=== PATIENT | female | born 1995 | race Caucasian/White ===

== ENCOUNTER 2018-07-07 10:44 | Emergency (ER) | payer BC ==
[~2018-07-07] VITALS: Ht 154.9 cm; Wt 59.9 kg
[~2018-07-07 10:44] MED LIST: BIRTH CONTROL TABS; HYDROCODONE-AP1 EAC6 PO; IBUPROFEN 600600 M1 PO; NOHOMEMEDICATIONS; PROMETHAZINE12.5 M1 PO; ZOFRAN 4 MG ORAL4 MG PO; ZPAK PO
[2018-07-07 11:09] LABS: URINE BILIRUBIN NEGATIVE (Negative); URINE BLOOD NEGATIVE (Negative); URINE CLARITY CLEAR; URINE COLOR YELLOW; URINE GLUCOSE-RANDOM NEGATIVE (Negative); URINE KETONES NEGATIVE (Negative); URINE LEUKOCYTES-REFLEX NEGATIVE (Negative); URINE NITRITE-REFLEX NEGATIVE (Negative); URINE PROTEIN NEGATIVE (Negative); URINE SPECIFIC GRAVITY 1.025 (1.005-1.030); URINE UROBILINOGEN 0.2 E.U./dl (0.2-1.0)
[2018-07-07 11:24] LABS: HEMATOCRIT 45.3 % (37.0-47.0); HEMOGLOBIN 15.4 gm/dL (12.0-15.0); MCH 30.2 pg (26.0-34.0); MCHC 34.1 g/dL (28.0-37.0); MCV 88.8 fL (80.0-100.0); MPV 8.1 fl. (7.2-11.1); NUCLEATED RBCS 0 /100WBC; PLATELET COUNT* 288 thou/uL (150-400); WBC 13.1 thou/uL (4.0-11.0)
[2018-07-07 11:39] LABS: ALBUMIN 4.2 g/dL (3.4-5.0); CALCIUM 9.3 mg/dL (8.5-10.1); CREATININE 0.8 mg/dL (0.6-1.3); POTASSIUM 4.3 mmol/L (3.5-5.1); TOTAL BILIRUBIN 0.7 mg/dL (<0.1-1.0); TOTAL PROTEIN 8.5 g/dL (6.4-8.2)
[2018-07-07 12:15] LABS: ABSOLUTE LYMPHOCYTES 0.5 thou/uL (0.8-5.3); ABSOLUTE MONOCYTES 0.5 thou/uL (0.0-1.2); ABSOLUTE NEUTROPHILS 12.1 thou/uL (1.6-8.1); ANISOCYTOSIS 1+; PLATELET ESTIMATE ADEQUATE; POIKILOCYTOSIS 1+
[2018-07-07] MEDS ORDERED: ONDANSETRON HCL4 M2 PO (15:11)
[2018-07-07] MEDS ORDERED: PHENERGAN 25 MG25 M1 PO (15:11)
[2018-07-07] MEDS ORDERED: NABUMETONE 750750 M1 PO (15:13)
[2018-07-07] MEDS ORDERED: BENTYL 20 MG TA20 M1 PO (15:13)
[2018-07-07] MEDS ORDERED: ULTRAM 50MG TAB50 MG PO (15:23)
[2018-07-07 15:36] VITALS: BP 116/88
== END 2018-07-07 15:33 | disposition home or self-care (01) ==
LOC: M.ERS 10:44
PROVIDERS: Nurse Practitioner Family
DX: R19.7 Diarrhea, unspecified (principal); R11.2 Nausea with vomiting, unspecified; N83.202 Unspecified ovarian cyst, left side; F17.210 Nicotine dependence, cigarettes, uncomplicated; Z98.890 Other specified postprocedural states

== ENCOUNTER 2019-04-04 10:18 | Emergency (ER) | payer BC ==
[~2019-04-04] VITALS: Ht 154.9 cm; Wt 72.6 kg
[~2019-04-04 10:18] MED LIST changes: +BENTYL 20 MG TA20 M1 PO; +NABUMETONE 750750 M1 PO; +ONDANSETRON HCL4 M2 PO; +PHENERGAN 25 MG25 M1 PO; +ULTRAM 50MG TAB50 MG PO
[2019-04-04] MEDS ORDERED: NORCO 5-325 TA1 EAC1 PO (11:22)
[2019-04-04] MEDS ORDERED: FLEXERIL PO (11:22)
[2019-04-04 12:14] VITALS: BP 141/91
== END 2019-04-04 12:15 | disposition home or self-care (01) ==
LOC: M.ERS 10:18
DX: S00.83XA Contusion of other part of head, initial encounter (principal); S50.311A Abrasion of right elbow, initial encounter; Z90.89 Acquired absence of other organs; Z98.890 Other specified postprocedural states; Y04.2XXA Assault by strike against or bumped into by another person, initial encounter; Y92.89 Other specified places as the place of occurrence of the external cause; Y93.89 Activity, other specified; Y99.8 Other external cause status

== ENCOUNTER 2020-11-20 10:37 | Emergency (ER) | payer OTHER ==
[~2020-11-20] VITALS: Ht 154.9 cm; Wt 77.1 kg
[~2020-11-20 10:37] MED LIST changes: +FLEXERIL PO; +NORCO 5-325 TA1 EAC1 PO
[2020-11-20 14:40] LABS: ABSOLUTE EOSINOPHILS 0.1 thou/uL (0.0-0.7); ABSOLUTE LYMPHOCYTES 1.9 thou/uL (0.8-5.3); ABSOLUTE MONOCYTES 0.6 thou/uL (0.0-1.2); ABSOLUTE NEUTROPHILS 6.9 thou/uL (1.6-8.1); BASOPHILS 0.4 %; EOSINOPHILS 1.4 %; HEMATOCRIT 46.7 % (37.0-47.0); LYMPHOCYTES 19.7 %; MCH 32.3 pg (26.0-34.0); MCHC 34.3 g/dL (28.0-37.0); MONOCYTES 6.4 %; NUCLEATED RBCS 0 /100WBC; PLATELET COUNT* 336 thou/uL (150-400); POLYS 72.1 %; RBC 4.97 mil/uL (4.20-5.00); RDW-CV 14.1 % (10.5-14.5); WBC 9.6 thou/uL (4.0-11.0)
[2020-11-20 14:50] LABS: CALCIUM 9.6 mg/dL (8.5-10.1); CREATININE 0.8 mg/dL (0.6-1.3); POTASSIUM 4.2 mmol/L (3.5-5.1)
[2020-11-20 15:01] LABS: ALBUMIN 4.3 g/dL (3.4-5.0); TOTAL BILIRUBIN 0.4 mg/dL (<0.1-1.0); TOTAL PROTEIN 8.8 g/dL (6.4-8.2)
--- NOTE | 2020-11-20 16:36 | EKG ---
[place] [address] ELECTROCARDIOGRAM REPORT Name: KECIA BELLA Room: [facility]#: [id number] Admission: 11/20/20 Attend Phys: Discharge: Date of : 89 Date of Service: 11/20/20 1041 Report #: [id number] THIS REPORT FOR: //name// 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 : 1995 Requested By: Brian Breen Order Number: [id number] MD: Malcolm Aguilar Measurements Intervals [place] Rate: 95 P: 37 ID: 121 QRS: 4 QRSD: 95 T: -1 QT: 347 QTc: 436 Interpretive Statements Sinus rhythm RSR' in V1 or V2, probably normal variant Compared to ECG 12/08/2016 14:28:55 Short ID interval no longer present Right ventricular hypertrophy no longer present Electronically Signed On 11-20-2020 16:36:10 CDT by Malcolm Aguilar [email or web address] <ELECTRONICALLY SIGNED> By: Malcolm Aguilar MD, [facility] 11/20/20 1636 1041 1041 Malcolm Aguilar MD, [facility] /EPI
[2020-11-20 17:20] VITALS: BP 143/105
== END 2020-11-20 17:20 | disposition home or self-care (01) ==
LOC: M.ERS 10:37
PROVIDERS: Emergency Medicine Emergency Medical Services
DX: R07.89 Other chest pain (principal); R00.2 Palpitations; F17.210 Nicotine dependence, cigarettes, uncomplicated; Z98.890 Other specified postprocedural states

== ENCOUNTER 2021-04-05 14:25 | Emergency (ER) | payer OTHER ==
[~2021-04-05] VITALS: Ht 152.4 cm; Wt 74.8 kg
[2021-04-05] MEDS ORDERED: LISINOPRIL5 MG PO (14:34)
[2021-04-05 14:57] LABS: ABSOLUTE BASOPHILS 0.1 thou/uL (0.0-0.2); ABSOLUTE LYMPHOCYTES 1.1 thou/uL (0.8-5.3); ABSOLUTE MONOCYTES 0.9 thou/uL (0.0-1.2); ABSOLUTE NEUTROPHILS 23.8 thou/uL (1.6-8.1); BASOPHILS 0.2 %; EOSINOPHILS 0.1 %; HEMATOCRIT 55.7 % (37.0-47.0); HEMOGLOBIN 19.1 gm/dL (12.0-15.0); LYMPHOCYTES 4.3 %; MCH 32.6 pg (26.0-34.0); MCHC 34.3 g/dL (28.0-37.0); MONOCYTES 3.4 %; NUCLEATED RBCS 0 /100WBC; PLATELET COUNT* 444 thou/uL (150-400); RBC 5.87 mil/uL (4.20-5.00); RDW-CV 14.1 % (10.5-14.5); WBC 25.9 thou/uL (4.0-11.0)
[2021-04-05 15:06] LABS: CALCIUM 11.9 mg/dL (8.5-10.1)
[2021-04-05 15:11] LABS: ALBUMIN 5.5 g/dL (3.4-5.0); TOTAL BILIRUBIN 1.3 mg/dL (<0.1-1.0); TOTAL PROTEIN 11.4 g/dL (6.4-8.2)
[2021-04-05 15:36] LABS: INFLUENZA A ANTIGEN Negative (Negative); INFLUENZA B ANTIGEN Negative (Negative)
[2021-04-05] MEDS ORDERED: ZOFRAN ODT4 MG DISSOLVE (16:02)
[2021-04-05] MEDS ORDERED: CIPROFLOXACIN500 M1 PO (16:02)
[2021-04-05 16:49] LABS: URINE BLOOD TRACE (Negative); URINE CLARITY CLEAR; URINE COLOR YELLOW; URINE GLUCOSE-RANDOM NEGATIVE (Negative); URINE KETONES NEGATIVE (Negative); URINE LEUKOCYTES-REFLEX NEGATIVE (Negative); URINE NITRITE-REFLEX NEGATIVE (Negative); URINE PROTEIN 2+ (Negative); URINE SPECIFIC GRAVITY <= 1.005 (1.005-1.030); URINE UROBILINOGEN 0.2 E.U./dl (0.2-1.0)
[2021-04-05 16:56] LABS: ICTOTEST (BILI CONFIRMATORY) Negative (Negative); URINE BILIRUBIN 2+ (Negative)
[2021-04-05 16:57] LABS: HYALINE CASTS >10 Many /LPF (None Seen); MUCUS 0-3 Light strn/LPF (None Seen)
[2021-04-05 16:58] LABS: BACTERIA-REFLEX 1-9 Few /HPF (None Seen); CRYSTALS None Seen /LPF (None Seen); SQUAMOUS 4-10 Moderate /LPF (0-3); URINE RBC 0-2 Rare /HPF (0-2); URINE WBC-REFLEX 0-5 Rare /HPF (0-5)
[2021-04-05 17:15] VITALS: BP 134/91
[2021-04-05 20:47] LABS: AMP/METHAMP Negative (Negative); BARBITURATES Negative (Negative); BENZODIAZEPINES Negative (Negative); COCAINE Negative (Negative); METHADONE Negative (Negative); OPIATES Negative (Negative); PCP Negative (Negative); THC POSITIVE (Negative)
--- NOTE | 2021-04-06 09:59 | EKG ---
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: : 1995 Requested By: Wayne Lopez Order Number: [id number] MD: Naren Rivera Measurements Intervals [place] Rate: 130 P: [place]: QRS: 15 QRSD: 103 T: -10 QT: 286 QTc: 421 Interpretive Statements sinus tachycardia RSR' in V1 or V2, right VCD or RVH Compared to ECG 11/20/2020 10:41:37 Sinus rhythm no longer present Electronically Signed On 04-06-2021 9:59:16 [employer] by Naren Rivera [email or web address] <ELECTRONICALLY SIGNED> By: Naren Rivera MD, FACC 04/06/21 0959 1438 1438 Naren Rivera MD, [facility] /EPI
== END 2021-04-05 17:16 | disposition home or self-care (01) ==
LOC: M.ERS 14:25
PROVIDERS: Family Medicine
DX: R11.2 Nausea with vomiting, unspecified (principal); Z20.822 Contact with and (suspected) exposure to COVID-19; R19.7 Diarrhea, unspecified; F17.210 Nicotine dependence, cigarettes, uncomplicated; Z90.89 Acquired absence of other organs; Z79.899 Other long term (current) drug therapy